=== PATIENT | male | born 1945 | race Caucasian/White ===

== ENCOUNTER → 2016-09-06 | Day surgery (SDC) | payer MEDICARE, OTHER ==
[~2016-09-06] VITALS: Ht 170.2 cm; Wt 94.5 kg
[~2016-09-06] MED LIST: ARIPIPRAZOLE10 MG PO; B-12 DOTS500 MCG PO; CENTRUM SILVER1 TAB PO; CPAP INH; FEOSOL325 MG PO; FISH OIL 1,0001 EAC1 PO; FOLIC ACID1 MG PO; HYDROCHLOROTH12.5 MG PO; KLONOPIN1 MG PO; LIPITOR40 MG PO; MINIPRESS1 M1 PO; MINIPRESS1 MG PO; PRILOSEC20 MG PO; PRINIVIL OR ZES10 MG PO; SERTRALINE HCL50 MG PO; TRAZODONE HCL50 MG PO; TYLENOL WITH C1 EACH PO; VITAMIN D-32000 UNI1 PO; ZYLOPRIM100 MG PO
--- NOTE | ~2016-09-06 | OR ---
PATIENT'S NAME: [facility] AGE: 71 Y [address] ROOM: [place] [id number] [place] [facility] [place]: 09/06/2016 OR/Procedure Report DISCHARGE DATE: FAMILY PHYSICIAN: Tanisha Escobar ATTENDING PHYSICIAN: Reginald Kruger SURGEON: Reginald Kruger MD CERTIFIED ATHLETIC TRAINER: DATE OF PROCEDURE: 09/06/2016 PREOPERATIVE DIAGNOSES: 1. Bilateral nephrolithiasis. 2. Left ureter stone. 3. Retained left ureteral stent. POSTOPERATIVE DIAGNOSES: 1. Bilateral nephrolithiasis. 2. Left ureter stone. 3. Retained left ureteral stent. PROCEDURE PERFORMED: Cystoscopy, left ESWL, stent removal. ANESTHESIA: General. COMPLICATIONS: None. INDICATION FOR PROCEDURE: The patient is a 71-year-old male who is status post left ureteral stent placement with left ureteroscopy and laser lithotripsy for distal ureter stone and followup left ESWL. Attempts to remove the stent were unsuccessful and he now presents for ureterostomy and stent removal with possible ESWL. DETAILS OF PROCEDURE: After informed consent was obtained, the patient was taken to the operating room. A general anesthetic applied. He was placed in the dorsal lithotomy position. The groin area was prepped and draped in normal sterile fashion. A cystoscope was introduced into the urethra and bladder without difficulty. The left ureteral stent was identified in the left ureteral orifice and was grabbed with a grasping device and attempted removal. However, I experienced significant resistance, and under fluoroscopy, it appeared that the stent was stuck. The proximal curve of the stent was stuck along the stone in the ureter. At this point, stent removal was abandoned. The patient was then transferred to a lithotripsy table. He was placed in a supine position and his stone was targeted with fluoroscopy. He received shocks starting at 16 kilovolts and was gradually increased to 26 kilovolts. The stone and proximal stent received a total of 3200 shocks and appeared the stone fragmented well with treatment. The patient's groin area PATIENT'S NAME: [facility] AGE: 71 Y [address] ROOM: [place] [id number] [place] [facility] [place]: 09/06/2016 OR/Procedure Report DISCHARGE DATE: FAMILY PHYSICIAN: Tanisha Escobar ATTENDING PHYSICIAN: Reginald Kruger was then prepped and draped in normal sterile fashion. Flexible cystoscope was introduced into the urethra and bladder. The stent was grasped and removed with some difficulty. It appeared the stent actually got stuck along the course of the urethra, which I was able to dislodge and remove. I rechecked the ureteral orifice which was intact. The patient tolerated the procedure well and was transferred to recovery room in good condition. MD JESS SMITH/maylin /[id number] CC: Carter Gates MD d: 09/06/16 1828 t: 09/12/16 0942, OPERATIVE SUMMARY
== END ==
LOC: GPOC 09-01 11:00 → GSDC 10:16 → GPOC 11:00 → GSDC 11:00
PROC: 0TP98DZ Removal of Intraluminal Device from Ureter, Via Natural or Artificial Opening Endoscopic (ICD-10-PCS; principal; 2016-09-06)
PROC: 0TF7XZZ Fragmentation in Left Ureter, External Approach (ICD-10-PCS; 2016-09-06)
DX: N20.2 Calculus of kidney with calculus of ureter (principal); Z46.6 Encounter for fitting and adjustment of urinary device; I10 Essential (primary) hypertension; K21.9 Gastro-esophageal reflux disease without esophagitis; G47.33 Obstructive sleep apnea (adult) (pediatric); E78.5 Hyperlipidemia, unspecified; R25.1 Tremor, unspecified; Z87.891 Personal history of nicotine dependence; Z79.899 Other long term (current) drug therapy
CPT/HCPCS: C1769; J1956; J2001; J7120

== ENCOUNTER → 2016-10-03 | Outpatient (CLI) | payer MEDICARE, OTHER | END | disposition disaster alternative care site (69) | LOC: GRAD 12:39 | DX: N20.2 Calculus of kidney with calculus of ureter (principal) ==